=== PATIENT | female | born 1970 | race Caucasian/White ===

== ENCOUNTER 2021-05-04 09:07 | Inpatient (IN) | payer OTHER ==
[~2021-05-04] VITALS: Ht 165.1 cm; Wt 68.0 kg
[2021-05-06] MEDS ORDERED: MELOXICAM15 MG (11:40)
== END 2021-05-09 10:52 | disposition home or self-care (01) | DRG 378 ==
LOC: ER 09:07 → MEDJ 13:48
PROVIDERS: ADMIT Internal Medicine; ATTEND Internal Medicine
PROC: 30233N1 Transfusion of Nonautologous Red Blood Cells into Peripheral Vein, Percutaneous Approach (ICD-10-PCS; principal; 2021-05-05)
PROC: BW2110Z Computerized Tomography (CT Scan) of Abdomen and Pelvis using Low Osmolar Contrast, Unenhanced and Enhanced (ICD-10-PCS; 2021-05-05)
PROC: BW40ZZZ Ultrasonography of Abdomen (ICD-10-PCS; 2021-05-06)
PROC: 0DJ08ZZ Inspection of Upper Intestinal Tract, Via Natural or Artificial Opening Endoscopic (ICD-10-PCS; 2021-05-07)
DX: K92.2 Gastrointestinal hemorrhage, unspecified (principal); K76.6 Portal hypertension; D64.9 Anemia, unspecified; D69.6 Thrombocytopenia, unspecified; K44.9 Diaphragmatic hernia without obstruction or gangrene; I86.4 Gastric varices; Z90.81 Acquired absence of spleen; Z20.822 Contact with and (suspected) exposure to COVID-19

== ENCOUNTER 2021-08-20 19:04 | Inpatient (IN) | payer OTHER ==
[~2021-08-20] VITALS: Ht 175.3 cm; Wt 68.0 kg
[~2021-08-20 19:04] MED LIST: MELOXICAM15 MG
[2021-08-20] MEDS ORDERED: B COMPLEX1 EAC1 PO (19:21)
[2021-08-21] MEDS ORDERED: PROPRANOLOL HCL10 MG (15:27)
[2021-08-21] MEDS ORDERED: ABANEU-SL TABL1 EACH (15:27)
[2021-08-21] MEDS ORDERED: PANTOPRAZOLE SO40 MG (15:27)
[2021-09-12] MEDS ORDERED: PROPRANOLOL HCL40 MG PO (16:06)
== END 2021-09-12 16:13 | disposition home or self-care (01) | DRG 602 ==
LOC: ER 19:04 → SEC-K 08-21 09:53 → MEDI 08-21 09:53
PROVIDERS: ADMIT Internal Medicine; ATTEND Internal Medicine
PROC: BQ3HZZZ Magnetic Resonance Imaging (MRI) of Left Ankle (ICD-10-PCS; principal; 2021-08-21)
PROC: B246ZZZ Ultrasonography of Right and Left Heart (ICD-10-PCS; 2021-08-22)
PROC: B54DZZZ Ultrasonography of Bilateral Lower Extremity Veins (ICD-10-PCS; 2021-08-30)
PROC: 02HV33Z Insertion of Infusion Device into Superior Vena Cava, Percutaneous Approach (ICD-10-PCS; 2021-09-01)
PROC: CW1NLZZ Planar Nuclear Medicine Imaging of Whole Body using Gallium 67 (Ga-67) (ICD-10-PCS; 2021-09-09)
DX: L02.415 Cutaneous abscess of right lower limb (principal); A41.01 Sepsis due to Methicillin susceptible Staphylococcus aureus; K76.6 Portal hypertension; L03.115 Cellulitis of right lower limb; Z20.822 Contact with and (suspected) exposure to COVID-19; I86.4 Gastric varices; K74.69 Other cirrhosis of liver; D63.8 Anemia in other chronic diseases classified elsewhere; D51.3 Other dietary vitamin B12 deficiency anemia; D75.838 Other thrombocytosis; B95.61 Methicillin susceptible Staphylococcus aureus infection as the cause of diseases classified elsewhere

== ENCOUNTER 2021-10-08 14:40 | Outpatient (CLI) | payer OTHER ==
[~2021-10-08 14:40] MED LIST changes: +ABANEU-SL TABL1 EACH; +B COMPLEX1 EAC1 PO; +PANTOPRAZOLE SO40 MG; +PROPRANOLOL HCL10 MG; +PROPRANOLOL HCL40 MG PO
== END 2021-10-08 14:49 | disposition home or self-care (01) ==
LOC: LAB 14:40
PROVIDERS: ATTEND Specialist
DX: L02.611 Cutaneous abscess of right foot (principal)

== ENCOUNTER 2021-10-16 10:39 | Outpatient (CLI) | payer OTHER | END 2021-10-16 10:48 | disposition home or self-care (01) | LOC: RAD 10:39 | PROVIDERS: ATTEND Orthopaedic Surgery | DX: M25.571 Pain in right ankle and joints of right foot (principal); M25.572 Pain in left ankle and joints of left foot; M79.671 Pain in right foot; M79.672 Pain in left foot ==

== ENCOUNTER 2021-10-22 15:08 | Inpatient (IN) | payer OTHER ==
[~2021-10-22] VITALS: Ht 175.3 cm; Wt 65.8 kg
--- NOTE | 2021-10-22 15:17 | NUR ---
SE RECIBE PACIENTE ALERTA Y ORIENTADA X3 DE OFICINA MEDICA DE CON UN REFERIDO PARA ADMICION POR SEPSIS E INFECCION EN EL [facility] SE MONITOREAN LOS SV Y SE UBICA EN OBSERVACION.
--- NOTE | 2021-10-22 15:46 | NUR ---
Mahnaz WALDRON ORIENTA PTE SOBRE TRATAMIENTO A SEGUIR, EL CUAL REFIERE ENTENDER. EL MISMO COLECTA MUESTRAS Y CANALIZA PTE UTILIZANDO MEDIDAS ASEPTICAS. PEND CONSULTAS DR.LOPEZ ROBERTS Y DR. CLOTILDE JO.
[2021-11-08] MEDS ORDERED: GABAPENTIN100 MG PO (12:29)
[2021-11-08] MEDS ORDERED: B COMPLEX1 EAC1 PO (12:30)
[2021-11-08] MEDS ORDERED: PANTOPRAZOLE SO40 MG PO (12:30)
[2021-11-08] MEDS ORDERED: TRAZODONE HCL50 MG PO (12:30)
[2021-11-08] MEDS ORDERED: INTESTINEX680 M1 PO (12:31)
[2021-11-08] MEDS ORDERED: Neurin-Sl Tablet Sl SL (12:32)
== END 2021-11-08 12:48 | disposition home or self-care (01) | DRG 496 ==
LOC: ER 15:08 → MEDI 19:52 → SEC-K 19:52 → MEDI 22:01
PROVIDERS: Orthopaedic Surgery; ADMIT Internal Medicine; ATTEND Internal Medicine
PROC: B24BZZZ Ultrasonography of Heart with Aorta (ICD-10-PCS; 2021-10-23)
PROC: 04B Lower Arteries, Excision (ICD-10-PCS; 2021-10-25)
PROC: 0QPN04Z Removal of Internal Fixation Device from Right Metatarsal, Open Approach (ICD-10-PCS; principal; 2021-10-25 10:45)
DX: T84.7XXA Infection and inflammatory reaction due to other internal orthopedic prosthetic devices, implants and grafts, initial encounter (principal); L03.115 Cellulitis of right lower limb; L02.611 Cutaneous abscess of right foot; M86.671 Other chronic osteomyelitis, right ankle and foot; B95.61 Methicillin susceptible Staphylococcus aureus infection as the cause of diseases classified elsewhere; L08.9 Local infection of the skin and subcutaneous tissue, unspecified; K74.69 Other cirrhosis of liver; D75.838 Other thrombocytosis; I10 Essential (primary) hypertension; D64.9 Anemia, unspecified; D72.818 Other decreased white blood cell count

== ENCOUNTER 2021-12-10 09:50 | Outpatient (CLI) | payer OTHER ==
[~2021-12-10 09:50] MED LIST changes: +GABAPENTIN100 MG PO; +INTESTINEX680 M1 PO; +Neurin-Sl Tablet Sl SL; +PANTOPRAZOLE SO40 MG PO; +TRAZODONE HCL50 MG PO
== END 2021-12-10 09:57 | disposition home or self-care (01) ==
LOC: RAD 09:50
PROVIDERS: ATTEND Specialist
DX: M85.872 Other specified disorders of bone density and structure, left ankle and foot (principal)

== ENCOUNTER → 2022-03-26 | Outpatient (CLI) | payer OTHER | END | disposition home or self-care (01) | LOC: RAD 09:46 | PROVIDERS: ATTEND Specialist | DX: S92.909A Unspecified fracture of unspecified foot, initial encounter for closed fracture (principal) ==